=== PATIENT | male | born 1955 | race Caucasian/White ===

== ENCOUNTER 2020-05-01 10:48 | Emergency (ER) | payer OTHER ==
[~2020-05-01] VITALS: Ht 182.9 cm; Wt 110.0 kg
[2020-05-01 11:00] VITALS: BP 145/85
--- NOTE | 2020-05-01 11:16 | NUR ---
R. HIP PAIN RADIATING DOWN R. LEG PAIN 11/18, LAST WEEK HAD AN X-RAY "LOOKS LIKE A LOT ARTHRITIS THATS PUSHING ON A NERVE" PT SCHEDULED FOR MRI ON THURSDAY AND PT TO GET AN EPIDERAL. SEEING DR. BARRIOS AT [facility]. 1 WEEK AGO SAT TO GO TO THE BATHROOM AND PAIN STARTNG SHOOTING FROM R. HIP TO R. LEG, ATTEMPTED TO USE INVERSION TABLE TO HELP. PAIN HAS GOTTEN PROGRESSIVELY WORST, ESPESCIALLY WHEN SITTING. AT BEDSIDE FOR EVALUATION. CMS INTACT, PATIENT DENIES LOSS OF SENSATION AND WEAKNESS. HOOKED TO MONITORS, VSS, NADN,
--- NOTE | 2020-05-01 11:56 | NUR ---
Patient/Caregiver given discharge instructions and they have confirmed that they understand the instructions. Patient ambulatory with steady gait.
== END 2020-05-01 11:57 | disposition home or self-care (01) ==
LOC: ED 11:53
DX: M54.41 Lumbago with sciatica, right side (principal); R00.1 Bradycardia, unspecified
CPT/HCPCS: 93005; 99283